=== PATIENT | female | born 1985 | race Caucasian/White ===

== ENCOUNTER 2018-01-10 14:01 | Inpatient (IN) | payer MEDICAID ==
[2018-01-10] MEDS ORDERED: OXYTOCIN 20 UNIT in LR 1,000 ML IV PRN (14:42)
[2018-01-10] MEDS ORDERED: OLIVE OIL 118 ML BTL MISC PRN (14:42)
[2018-01-10] MEDS ORDERED: MISOPROSTOL 200 MCG TAB PR PRN (14:42)
[2018-01-10] MEDS ORDERED: LR 1,000 ML IV PRN (14:42)
[2018-01-10] MEDS ORDERED: TERBUTALINE SULFATE 1 MG/ML VIAL IV PRN (14:42)
[2018-01-10] MEDS ORDERED: EPSOM SALT 454 GM TP PRN (14:42)
[2018-01-10 15:12] LABS: PLATELET COUNT 230 10^3/uL (150-400)
[2018-01-10] MEDS ORDERED: LIDOCAINE 1% 300 MG/30 ML SDV ONE (15:26)
[2018-01-10] MEDS ORDERED: AMMONIA AROMATIC 1 EACH AMP IH ONE (15:26)
[2018-01-10] MEDS ORDERED: OLIVE OIL 118 ML BTL ONE (15:26)
[2018-01-10] MEDS ORDERED: TERBUTALINE SULFATE 1 MG/ML VIAL ONE (15:27)
[2018-01-10] MEDS ORDERED: MISOPROSTOL 200 MCG TAB ONE (15:27)
[2018-01-10] MEDS ORDERED: OXYTOCIN 10 UNIT/ML VIAL ONE ×2 (15:27→23:04)
--- NOTE | 2018-01-10 16:52 | GHP ---
[f rep st] PREOP HISTORY AND PHYSICAL DATE OF ADMISSION: 01/10/2018 ADMITTING DIAGNOSIS: Intrauterine at 40 and 0/7 weeks' gestation in active labor. HISTORY OF PRESENT ILLNESS: Patient is a 32-year-old 2, para 1-0-0-1 with a last menstrual p eriod of 04/13/2017, and EDC of 01/10/2018, which was set by a 10-week ultrasound. She has had good care at [facility] since registration at 10 weeks. Her risk factors incl ude history of rapid labor. She had 4 hours between her 1st contraction and delivery of her baby who weighed 6 pounds 12 ounces, was born in 2013, and she has had an abnormal Pap in this that is being followed. Other than that, no risk factors. She progressed to 40 weeks. This mo rning she was having mild contractions. She was seen for an antepartum visit and was found to be 4-5 cm, 75%, and -2. Because of her history of rapid labor, patient was not aware that she was in labor until 7 cm with her first baby. Patient was anxious and elected to go to the [facility] for observati on. She has been watched for a couple hours. She is having irregular contractions that are getting stronger. On recheck, her cervix is 7 cm, 80%, -2, and I offered to perform an amniotomy. Patient w ishes to have her support person arrive, and then will have amniotomy and augmentation of labor. The patient has had good movement. No vaginal bleeding or any other complaints. PAST OBSTETRICAL HISTORY: She has had 1 other , baby born in April of 2014, viable female, 6 pounds 12 ounces, rapid labor. GYNECOLOGICAL HISTORY: Patient had no gynecological problems, normal menstrual triad, menarche at ag e 15. Periods every 28 days. Patient had irregular contractions since the of her first baby. PAST MEDICAL HISTORY: No significant past medical history. PAST SURGICAL HISTORY: The only surgery she has had is a wisdom tooth extraction. ALLERGIES: No known drug allergies. MEDICATIONS: Include vitamins, DHEA. LABORATORY DATA: B positive, antibody negative, RPR nonreactive, rubella immune, hepatitis negative, HIV negative. Standard panel was negative including . Pap was positive HPV. 1-hour GTT, 102. GBS was negative. SOCIAL HISTORY: She is . She lives with her and her daughter. She is a [id number] mom. She denies tobacco, alcohol, and drug use. FAMILY HISTORY: Father of an GA at age 50. Mother has chronic hypertension. Paternal grandmot her of breast cancer. Her sister has bipolar. OBJECTIVE: Today she is afebrile. Vital signs are stable. heart tones are 130s, reactive mod erate variability, category 1. She is marge irregularly. Cervix is 7, 80%, -2, bulging bag of water. ASSESSMENT AND PLAN: 32-year-old 2, para 1-0-0-1, with a history of rapid labor in active [facility]. Patient is admitted for labor management. We will perform an amniotomy when she is ready. Exp ect spontaneous vaginal delivery. Patient will use nitrous for pain control. /[id number]/MODL
--- NOTE | 2018-01-10 20:12 | OBPROG ---
Labor Progress Note Assessment/Plan: Assessment: 32 y/o @ 40 weeks in labor now AROM Plan: Good progress, will await patient to feel the urge to push. status reassuring. 01/10/18 20:12 Subjective/Intrapartum Course: 01/10/18 20:08 Pt is feeling strong contractions. Objective: 01/10/18 14:40 Patient ABO/Rh B POSITIVE 01/10/18 14:40 - SVE Dilation (cm): 9 Effacement (%): 90 Station: 0 Membranes: AROM Amniotic Fluid Color: Clear - Contraction Pattern Assessment Current Contraction Pattern: Regular (Q 2-3) - FHR Assessment Betancourt FHR (bpm): 140 FHR Pattern Variability: Moderate FHR Category: 1 - Procedures Non-surgical Procedures: Amniotomy (compound presentation palpated hand, confirmed vtx by u/s) - AP Antepartum Course: 01/10/18 20:11 H/o rapid labor with G1, abnormal pap in Oxytocin Orders Assessment - Pre-Induction/Augmentation Assessment Gestational Age: 40 week(s) and 0 day(s) ICD10 Worksheet Patient Problems: Problems Problem Status Onset active labor at term Acute
--- NOTE | 2018-01-10 21:10 | OBPROG ---
Labor Progress Note Assessment/Plan: Assessment: 32 y/o @ 40 weeks in labor now AROM Plan: Pt desires and epidural now, will assess when she is comfortable to try to reduce the hand. 01/10/18 20:12 01/10/18 21:09 Subjective/Intrapartum Course: 01/10/18 20:08 Pt is feeling strong contractions. 01/10/18 21:07 Pt is uncomfortable with her contractions and some pelvic pressure, but no urge to push. Objective: 01/10/18 14:40 Patient ABO/Rh B POSITIVE 01/10/18 14:40 - SVE Dilation (cm): 8 Effacement (%): 90 Station: 0 (compound presentation with hand) Membranes: AROM Amniotic Fluid Color: Clear - Contraction Pattern Assessment Current Contraction Pattern: Regular (Q 2-3) - Procedures Non-surgical Procedures: Amniotomy (compound presentation palpated hand, confirmed vtx by u/s) - AP Antepartum Course: 01/10/18 20:11 H/o rapid labor with G1, abnormal pap in Oxytocin Orders Assessment - Pre-Induction/Augmentation Assessment Gestational Age: 40 week(s) and 0 day(s) ICD10 Worksheet Patient Problems: Problems Problem Status Onset active labor at term Acute
[2018-01-10] MEDS ORDERED: ONDANSETRON 4 MG/2 ML VIAL IVP PRN (21:34)
[2018-01-10] MEDS ORDERED: NALOXONE HCL 0.4 MG/ML INJ IVP PRN (21:34)
[2018-01-10] MEDS ORDERED: PHENYLEPHRINE HCL 100 MCG/ML SYR IVP PRN (21:34)
[2018-01-10] MEDS ORDERED: PHENYLEPHRINE HCL 100 MCG/ML SYR ONE (21:42)
[2018-01-10] MEDS ORDERED: BUPIVACAINE 0.25% 30 ML SDV ONE (21:42)
[2018-01-10] MEDS ORDERED: fentaNYL 100 MCG/2 ML INJ ONE (21:43)
[2018-01-10] MEDS ORDERED: fentaNYL 2MCG/ML/BUP 0.1% RTU 100 ML EP SCH (22:00)
[2018-01-10] MEDS ORDERED: LR 500 ML IV SCH (22:00)
[2018-01-10] MEDS ORDERED: fentaNYL 200 MCG, BUPIVACAINE 0.5% 20 ML in NS 100 ML EP SCH (22:00)
--- NOTE | 2018-01-10 22:38 | PREANESOB ---
Obstetric Pre-Anesthesia Info - General Info Proposed Procedure: labor : 2 Para: 1 MONA: 01/10/18 Gestational Age: 40 week(s) and 0 day(s) - Info Status: Full Term Monitors: External FHR Pattern: Reassuring - Labor Status Cervical Dilation per last OB SVE: 8 Station per last OB SVE: 0 (compound presentation with hand) Amniotic Fluid Color: Clear Pitocin: In Use Magnesium Sulfate in Use: No Indications for Labor Analgesia: Augmentation of Labor, Pain Control Labor Epidural: Proposed Anesthesia ROS: mild asthma with occasional albuterol use, otherwise neg Allergies/Adverse Reactions: Allergy/AdvReac Type Severity Reaction Status Date / Time No Known Allergies Allergy Unverified 01/10/18 14:14 Home Medications: Medication Instructions Recorded Cyanocobalamin/Folic AC/Vit B6 1 each PO 01/10/18 [FOLIC ACID-VIT B6-VIT B12 TAB] Docosahexanoic Acid [Dha] 100 mg PO 01/10/18 Vit27&Calcium/Iron/FA 1 each PO DAILY 01/10/18 [ Rx 1 Tablet (RX)] Visit Medications: Generic Name Dose Route Start Last Admin Trade Name Freq PRN Reason Stop Dose Admin Diphenhydramine HCl 25 - 50 mg 01/10/18 21:34 Benadryl Injection IVP 07/09/18 21:33 Q6HRS PRN Itching Ephedrine Sulfate 10 mg 01/10/18 21:34 Ephedrine Sulfate IV 07/09/18 21:33 .Q2M PRN Hypotension Lactated Ringer's 1,000 mls @ 0 mls/hr 01/10/18 14:42 Lr IV 01/11/18 14:41 PRN PRN SEE PROTOCOL CONDITIONS Protocol Per Protocol Oxytocin 20 unit/ Lactated 1,002 mls @ 150 mls/hr 01/10/18 14:42 Ringer's IV PRN PRN Post- bleeding Lactated Ringer's 500 mls @ 0 mls/hr 01/10/18 22:00 Lr IV 07/09/18 21:59 CONT CONSTANZA As Directed Fentanyl 200 mcg/ Bupivacaine 100 mls @ 0 mls/hr 01/10/18 22:00 HCl 20 ml/ Sodium Chloride EP 01/20/18 21:59 CONT CONSTANZA Protocol As Directed Ibuprofen 600 mg 01/10/18 14:42 Motrin PO 07/09/18 14:41 Q6HRS PRN post , inflammation Magnesium Sulfate 454 gm 01/10/18 14:42 Epsom Salt TP 07/09/18 14:41 Q1H PRN perineal discomfort Misoprostol 800 - 1,000 mcg 01/10/18 14:42 Cytotec IA ONCE PRN Vaginal Atony/Bleeding Naloxone HCl 0.4 mg 01/10/18 21:34 Narcan IVP 07/09/18 21:33 PRN PRN Respiratory depression Fleming Oil 118 ml 01/10/18 14:42 Sweet Oil MISC 07/09/18 14:41 ONCE PRN perineal massage Ondansetron HCl 4 mg 01/10/18 21:34 Zofran IVP 01/11/18 21:33 Q4HRS PRN Nausea/Vomiting, Can't Take PO Phenylephrine HCl 100 mcg 01/10/18 21:34 Neosynephrine IVP 07/09/18 21:33 .Q2M PRN Hypotension Terbutaline Sulfate 0.25 mg 01/10/18 14:42 Brethine IV 07/09/18 14:41 ONCE PRN Tachysystole Discontinued Medications Generic Name Dose Route Start Last Admin Trade Name Freq PRN Reason Stop Dose Admin Ammonia (Aromatic Spirit) Confirm 01/10/18 15:26 Ammonia Aromatic Administered 01/10/18 15:27 Dose 1 each IH .STK-MED ONE Bupivacaine HCl Confirm 01/10/18 21:42 Sensorcaine 0.25% Sdv Administered 01/10/18 21:43 Dose 30 ml .ROUTE .STK-MED ONE Fentanyl Confirm 01/10/18 21:43 Sublimaze Administered 01/10/18 21:44 Dose 100 mcg .ROUTE .STK-MED ONE Lidocaine HCl Confirm 01/10/18 15:26 Lidocaine Hcl 1% Administered 01/10/18 15:27 Dose 300 mg .ROUTE .STK-MED ONE Misoprostol Confirm 01/10/18 15:27 Cytotec Administered 01/10/18 15:28 Dose 1,000 mcg .ROUTE .STK-MED ONE Fleming Oil Confirm 01/10/18 15:26 Sweet Oil Administered 01/10/18 15:27 Dose 118 ml .ROUTE .STK-MED ONE Oxytocin Confirm 01/10/18 15:27 Pitocin Administered 01/10/18 15:28 Dose 40 unit .ROUTE .STK-MED ONE Phenylephrine HCl Confirm 01/10/18 21:42 Neosynephrine Administered 01/10/18 21:43 Dose 1,000 mcg .ROUTE .STK-MED ONE Terbutaline Sulfate Confirm 01/10/18 15:27 Brethine Administered 01/10/18 15:28 Dose 1 mg .ROUTE .STK-MED ONE - Anesthesia History Response to Local Anesthetics: Normal Anesthesia & Operative History: No Prior Problems Family Anesthesia History: Negative - Social History Substance Use/Abuse: Denies - Vital Signs Height/Weight (Nursing): Height 170.18 cm Weight 80.739 kg - Focused Exam Neck exam: FROM Mallampati Score: Class 2 Mouth exam: normal dental/mouth exam Pulmonary: no respiratory distress Cardiovascular: regular rate and rhythym Labs: 01/10/18 14:40 Patient ABO/Rh B POSITIVE 01/10/18 14:40 - Plan Anesthetic Plan: mauri Consent Signed and on Chart: Yes Patient/Guardian Understands and Agrees to Plan: Yes Urgent/Emergent Case: Marshall montero completed preop but documented later for safe timely pt care
[2018-01-10] MEDS ORDERED: LR 500 ML IV PRN (23:19)
[2018-01-10] MEDS ORDERED: OXYTOCIN 30 UNIT in NS 500 ML IV SCH (23:30)
--- NOTE | 2018-01-11 00:45 | OBPROG ---
Labor Progress Note Assessment/Plan: Assessment: 32 y/o @ 40 weeks in labor now AROM Plan: hand was reduced and baby rotated now complete. Begin pushing. status is overall reassuring. 01/10/18 20:12 01/10/18 21:09 01/11/18 00:44 Subjective/Intrapartum Course: 01/10/18 20:08 Pt is feeling strong contractions. 01/10/18 21:07 Pt is uncomfortable with her contractions and some pelvic pressure, but no urge to push. 01/11/18 00:43 Pt is comfortable with her epidural. Feeling no urge to push. Objective: 01/10/18 14:40 Patient ABO/Rh B POSITIVE 01/10/18 14:40 - SVE Dilation (cm): 10 Effacement (%): 100 Station: +1 Membranes: AROM Amniotic Fluid Color: Clear - Contraction Pattern Assessment Current Contraction Pattern: Regular (Q 2-3) - Procedures Non-surgical Procedures: Amniotomy (compound presentation palpated hand, confirmed vtx by u/s) - AP Antepartum Course: 01/10/18 20:11 H/o rapid labor with G1, abnormal pap in Oxytocin Orders Assessment - Pre-Induction/Augmentation Assessment Gestational Age: 40 week(s) and 0 day(s) ICD10 Worksheet Patient Problems: Problems Problem Status Onset active labor at term Acute
[2018-01-11] MEDS ORDERED: SIMETHICONE 80 MG TAB CHEW PO PRN (01:52)
[2018-01-11] MEDS ORDERED: HYDROCORTISONE 0.5% CREAM TP PRN (01:52)
[2018-01-11] MEDS ORDERED: HYDROCODONE/APAP 5/325 TAB PO PRN (01:52)
[2018-01-11] MEDS ORDERED: ACETAMINOPHEN 325 MG TAB PO PRN (01:52)
--- NOTE | 2018-01-11 01:56 | OBDEL ---
Info Type: Vaginal Presentation at Delivery: Vertex L&D Analgesia/Anesthesia Type: Epidural GBS+: No - Hospital Course Intrapartum: 01/10/18 20:08 Pt is feeling strong contractions. 01/10/18 21:07 Pt is uncomfortable with her contractions and some pelvic pressure, but no urge to push. 01/11/18 00:43 Pt is comfortable with her epidural. Feeling no urge to push. Indications for Delivery: Spontaneous Labor Vaginal Delivery - Delivery Provider Delivery Physician/CNM: Rosamaria Clifford - Labor and Delivery Onset of Contractions Date: 01/10/18 Onset of Contractions Time: 14:22 Onset of Contractions Type: Augmented Rupture of Membranes Date: 01/10/18 Rupture of Membranes Time: 19:53 Rupture of Membranes Type: Artificial Amniotic Fluid Color: Clear Dilation Complete Date: 01/11/18 Dilation Complete Time: 00:30 Placenta Delivery Date: 01/11/18 Placenta Delivery Time: 01:40 Total Hours of Labor: 11 Non-surgical Procedures: Amniotomy (compound presentation palpated hand, confirmed vtx by u/s) Laceration: 1st Degree Repair: 2-0, Vicryl Vaginal Sponge Count Correct: Yes Vaginal Needle Count Correct: Yes Vaginal Sweep Performed: Yes EBL: 250 Delivery Events: Nuchal Cord (compound hand around neck with nuchal cord) - Medications Labor Augmentation/Induction Methods Used: Pitocin Labor Augmentation/Induction Indication: Inadequate Ctx Strength Stovall Data MONA: 01/10/18 Gestational Age: 40 week(s) and 1 day(s) Betancourt Delivery Date: 01/11/18 Delivery Time: 01:36 Sex of : Male Score (1 Min): 8 Score (5 Min): 9 ICD10 Worksheet Patient Problems: Problems Problem Status Onset (spontaneous vaginal delivery) Acute active labor at term Acute - ICD10 Problem Qualifiers (2) (spontaneous vaginal delivery)
[2018-01-11] MEDS: IBUPROFEN 600 MG TAB PO PRN ×4 (03:12→21:16)
--- NOTE | 2018-01-11 07:07 | POSTANESTH ---
Post Anesthetic Evaluation Cardiovascular Status: Normal, Stable Respiratory Status: Normal, Stable Level of Consciousness/Mental Status: Can Participate in Eval Pain Control: Adequate, Prn Tx Ordered Nausea/Vomiting Control: Adequate, Prn Tx Ordered Complications Possibly Related to Anesthesia: None Noted
[2018-01-11 09:30] VITALS: RESP 16
--- NOTE | 2018-01-11 10:11 | PDMN ---
Medical Necessity Medical necessity: Pt meets IP criteria per MD; admit for labor & delivery; per H&P & order 01/10/18
[2018-01-11] MEDS: DOCUSATE SODIUM 100 MG CAP PO PRN (14:45)
[2018-01-12] MEDS: IBUPROFEN 600 MG TAB PO PRN ×3 (02:36→16:04)
--- NOTE | 2018-01-12 09:13 | OBPP ---
Progress Note Assessment/Plan: Assessment:nipple tenderness in left breast a scab noted well otherwise pain well managed ff@u scant rubra lochia voiding without difficulty Plan:discharge to home with instructions. Fu 4 weeks and 6 weeks, pelvic rest, waest, , depression, bleeding patterns, infection pain management discussed verbalized understanding. Contraception. Continuing PNV 01/12/18 09:10 Subjective/ Course: 01/12/18 09:10 doing well denies difficulties. Ready to go home today Objective: 01/10/18 14:40 Patient ABO/Rh B POSITIVE 01/10/18 14:40 Temp Pulse Resp BP Pulse Ox 35.9 C L 85 16 127/73 H 99 01/11/18 20:00 01/11/18 20:00 01/11/18 20:00 01/11/18 20:00 01/11/18 20:00 Uterine Position/Fundal Height: At Umbilicus Uterine Tone: Firm Physical Exam - Physical Exam General Appearance: WD/WN, alert, no apparent distress Abdomen: other (ff@u scant rubra lochia) Extremities: normal range of motion, Isaias's sign (negative bilaterally) Skin: normal color, warm/dry Neuro/Psych: no motor/sensory deficits, alert, normal mood/affect, oriented x 3
[2018-01-12] MEDS: DOCUSATE SODIUM 100 MG CAP PO PRN (09:37)
[2018-01-12 10:01] VITALS: BP 120/67; PULSE 96; TEMP 97; O2SAT 97
== END 2018-01-12 16:30 | disposition home or self-care (01) | DRG 775 ==
LOC: FLD 14:01 → FOB 01-11 04:02
PROVIDERS: ADMIT Obstetrics & Gynecology; ATTEND Obstetrics & Gynecology
PROC: 10907ZC Drainage of Amniotic Fluid, Therapeutic from Products of Conception, Via Natural or Artificial Opening (ICD-10-PCS; 2018-01-10)
PROC: 0HQ9XZZ Repair Perineum Skin, External Approach (ICD-10-PCS; principal; 2018-01-11)
PROC: 10E0XZZ Delivery of Products of Conception, External Approach (ICD-10-PCS; principal; 2018-01-11)
DX: O32.6XX0 Maternal care for compound presentation, not applicable or unspecified (principal); O70.0 First degree perineal laceration during delivery; Z37.0 Single live birth; Z3A.40 40 weeks gestation of pregnancy
CPT/HCPCS: J2370; J2590; J3010; J3105